=== PATIENT | male | born 1950 | race Caucasian/White ===

== ENCOUNTER → 2018-05-02 13:43 | Outpatient (REF) | payer OTHER, SELFPAY | LOC: LAB 13:43 | PROVIDERS: Visit Provider Physician Assistant | DX: Z85.828 Personal history of other malignant neoplasm of skin (principal); Z87.2 Personal history of diseases of the skin and subcutaneous tissue; L82.1 Other seborrheic keratosis; L02.211 Cutaneous abscess of abdominal wall | CPT/HCPCS: 87070; 87147; 87205 ==